=== PATIENT | female | born 1980 | race Caucasian/White ===

== ENCOUNTER 2020-04-02 11:56 | Observation (INO) ==
[2020-04-02] MEDS ORDERED: Ketorolac 15 MG/ML VIAL IVP ONE (12:10)
[2020-04-02] MEDS ORDERED: *HR* FentaNYL (PF) 100 MCG/2 ML VIAL IVP ONE (12:10)
[2020-04-02] MEDS ORDERED: Ondansetron 4 MG/2 ML VIAL IVP ONE (12:10)
[2020-04-02 12:40] LABS: Basophils # 0.1 K/mcL (0.0-0.2); Basophils % 0.4 %; Eosinophils # 0.1 K/mcL (0.0-0.6); Hematocrit 36.9 % (35.3-44.9); Hemoglobin 12.2 g/dL (11.5-15.4); Immature Granulocytes % 0.3 % (0-4); Lymphocytes # 1.6 K/mcL (0.6-4.6); Lymphocytes % 13.6 %; Mean Corpuscular HGB Conc 33.1 g/dL (31.6-35.5); Mean Corpuscular Hemoglobin 28.8 pg (28.0-33.3); Mean Platelet Volume 8.2 fL (9.4-12.4); Monocytes # 0.8 K/mcL (0.0-1.3); Monocytes % 6.7 %; Neutrophils # 9.4 K/mcL (1.6-8.9); Platelet Count 346 K/mcL (140-400); Red Blood Count 4.24 M/mcL (3.82-4.97); Red Cell Distribution Width 13.3 % (11.5-14.5)
[2020-04-02 13:03] LABS: Calcium 8.7 mg/dL (8.6-10.3)
[2020-04-02] MEDS ORDERED: 0.9 % Sodium Chloride 1,000 ML IVC ONE (13:08)
[2020-04-02 13:23] LABS: Bacteria,Urine Few per hpf (None-Few); Bilirubin,Urine Negative (Negative); Blood,Urine Trace (Negative); Clarity,Urine Clear (Clear); Color,Urine Light-Yellow (Yellow); Glucose,Urine (UA) Normal (Normal); Ketones,Urine Negative (Negative); Leukocyte Esterase,Urine Negative (Negative); Mucus,Urine Few per lpf (None-Few); Nitrite,Urine Negative (Negative); PH,Urine 5.5 pH Units (5.0-8.0); Protein,Urine Negative (Neg-Trace); RBC,Urine 0-3 per hpf (0-3); Specific Gravity,Urine 1.015 (1.010-1.025); Squamous Epithelial Cell,Urine Few per hpf (None-Few); Urobilinogen,Urine Normal (Normal); WBC,Urine 0-3 per hpf (0-3)
[2020-04-02] MEDS ORDERED: Naloxone 0.4 MG/ML INJ IVP PRN (13:33)
[2020-04-02] MEDS ORDERED: Ondansetron 4 MG/2 ML VIAL IVP PRN (13:33)
[2020-04-02] MEDS ORDERED: *HR* OxyCODONE Immed Rel 5 MG TABLET PO PRN (13:33)
[2020-04-02] MEDS ORDERED: D5% in Water 1,000 ML IVC PRN (13:36)
[2020-04-02] MEDS ORDERED: Dextrose Gel 15 GM/37.5 ML TUBE PO PRN ×2 (13:36)
[2020-04-02] MEDS ORDERED: *HR* Dextrose 50 % in Water (Vial) 50 ML VIAL IVP PRN (13:36)
[2020-04-02] MEDS ORDERED: Ringers Solution, Lactated 1,000 ML IVC SCH (13:45)
[2020-04-02 14:40] LABS: INR 1.2; Prothrombin Time 13.2 Seconds (9.4-12.1)
[2020-04-02 14:42] LABS: Activated Partial Thrombo Time 29.7 Seconds (26.0-36.0)
[2020-04-02] MEDS ORDERED: D5% in Water 1,000 ML IVC SCH (15:00)
[2020-04-02] MEDS: Insulin LISPRO 300 UNITS/3 ML VIAL SQ SCH (17:38)
[2020-04-02] MEDS: *HR* HYDROcodone/Acet 5/325 mg TABLET PO PRN (19:33)
[2020-04-03] MEDS: Insulin LISPRO 300 UNITS/3 ML VIAL SQ SCH ×4 (00:55→18:07)
[2020-04-03] MEDS: *HR* HYDROcodone/Acet 5/325 mg TABLET PO PRN ×2 (01:40→20:49)
[2020-04-03 02:05] LABS: Basophils # 0.1 K/mcL (0.0-0.2); Basophils % 0.5 %; Eosinophils # 0.2 K/mcL (0.0-0.6); Eosinophils % 1.7 %; Hematocrit 31.3 % (35.3-44.9); Immature Granulocytes % 0.2 % (0-4); Lymphocytes # 1.9 K/mcL (0.6-4.6); Mean Corpuscular HGB Conc 33.5 g/dL (31.6-35.5); Mean Corpuscular Hemoglobin 29.2 pg (28.0-33.3); Mean Corpuscular Volume 87.2 fL (83.0-100.0); Mean Platelet Volume 8.4 fL (9.4-12.4); Monocytes # 0.8 K/mcL (0.0-1.3); Monocytes % 8.7 %; Neutrophils # 6.5 K/mcL (1.6-8.9); Platelet Count 279 K/mcL (140-400); Red Blood Count 3.59 M/mcL (3.82-4.97); Red Cell Distribution Width 13.2 % (11.5-14.5); Segmented Neutrophils % 68.9 %; White Blood Count 9.4 K/mcL (4.3-11.1)
[2020-04-03 02:07] LABS: Hemoglobin 10.5 g/dL (11.5-15.4)
[2020-04-03 02:21] LABS: Potassium 3.8 mEq/L (3.5-5.1)
[2020-04-03] MEDS ORDERED: polyethylene glycoL 3350 17 GM POWD.PACK PO ONE (09:11)
[2020-04-03] MEDS ORDERED: *HR* HYDROmorphone PF 0.5 MG/0.5 ML SYRINGE IVP PRN ×2 (11:57→15:49)
[2020-04-03] MEDS ORDERED: Ketorolac 30 MG/ML VIAL IVP ONE ×2 (11:57→15:49)
[2020-04-03] MEDS ORDERED: *HR* OxyCODONE Immed Rel 5 MG TABLET PO PRN ×3 (11:57→15:49)
[2020-04-03] MEDS ORDERED: Ondansetron 4 MG/2 ML VIAL IVP ONE ×2 (11:57→15:49)
[2020-04-03] MEDS ORDERED: Ringers Solution, Lactated 1,000 ML IVC SCH ×2 (12:00→15:49)
[2020-04-03] MEDS ORDERED: Isovue-300 50ML VIAL ONE (12:40)
[2020-04-03] MEDS ORDERED: *HR* FentaNYL (PF) 100 MCG/2 ML VIAL ONE (12:44)
[2020-04-03] MEDS ORDERED: Lidocaine -MPF 2% 2 ML VIAL ONE (12:44)
[2020-04-03] MEDS ORDERED: *HR* Propofol 200 MG/20 ML VIAL IVP ONE (12:44)
[2020-04-03] MEDS ORDERED: *HR* Midazolam HCl 2 MG/2 ML VIAL ONE (12:44)
[2020-04-03] MEDS ORDERED: CeFAZolin Syr 2,000MG/20 ML 2,000 MG/20 ML SYRINGE IVPB ONE (13:17)
[2020-04-03] MEDS ORDERED: Dexamethasone 4 MG/ML VIAL ONE (14:02)
[2020-04-03] MEDS ORDERED: Ondansetron 4 MG/2 ML VIAL ONE (14:02)
[2020-04-03] MEDS ORDERED: Ketorolac 30 MG/ML VIAL ONE (14:24)
[2020-04-03] MEDS ORDERED: D5% in Water 1,000 ML IVC PRN (15:49)
[2020-04-03] MEDS ORDERED: Ondansetron 4 MG/2 ML VIAL IVP PRN (15:49)
[2020-04-03] MEDS ORDERED: Dextrose Gel 15 GM/37.5 ML TUBE PO PRN ×2 (15:49)
[2020-04-03] MEDS ORDERED: *HR* Dextrose 50 % in Water (Vial) 50 ML VIAL IVP PRN (15:49)
[2020-04-03] MEDS ORDERED: Naloxone 0.4 MG/ML INJ IVP PRN (15:49)
[2020-04-03] MEDS ORDERED: polyethylene glycoL 3350 17 GM POWD.PACK PO PRN (20:41)
[2020-04-04] MEDS: *HR* HYDROcodone/Acet 5/325 mg TABLET PO PRN ×2 (02:33→11:42)
[2020-04-04] MEDS: Insulin LISPRO 300 UNITS/3 ML VIAL SQ SCH ×2 (02:35→06:27)
[2020-04-04 03:12] LABS: Basophils % 0.2 %; Eosinophils % 0.2 %; Hematocrit 31.8 % (35.3-44.9); Hemoglobin 10.5 g/dL (11.5-15.4); Immature Granulocytes % 0.2 % (0-4); Lymphocytes # 0.9 K/mcL (0.6-4.6); Lymphocytes % 10.7 %; Mean Corpuscular Hemoglobin 28.6 pg (28.0-33.3); Mean Corpuscular Volume 86.6 fL (83.0-100.0); Mean Platelet Volume 8.5 fL (9.4-12.4); Monocytes # 0.3 K/mcL (0.0-1.3); Monocytes % 4.2 %; Neutrophils # 6.8 K/mcL (1.6-8.9); Platelet Count 332 K/mcL (140-400); Red Blood Count 3.67 M/mcL (3.82-4.97); Red Cell Distribution Width 13.2 % (11.5-14.5); Segmented Neutrophils % 84.5 %; White Blood Count 8.1 K/mcL (4.3-11.1)
[2020-04-04 03:26] LABS: Calcium 8.7 mg/dL (8.6-10.3); Potassium 4.6 mEq/L (3.5-5.1)
[2020-04-04] MEDS ORDERED: *HR* FentaNYL (PF) 100 MCG/2 ML VIAL IVP ONE (07:31)
[2020-04-04] MEDS ORDERED: *HR* Midazolam HCl 2 MG/2 ML VIAL IVP ONE (07:31)
[2020-04-04] MEDS ORDERED: 0.9 % Sodium Chloride 500 ML ONE (08:23)
[2020-04-04] MEDS ORDERED: 0.9 % Sodium Chloride 1,000 ML ONE (09:04)
[2020-04-04] MEDS ORDERED: Ampicillin/Sulbactam 1,500 MG in 0.9 % Sodium Chloride Mini Bag 100 ML IVPB ONE (09:18)
[2020-04-04] MEDS ORDERED: Isovue-300 50ML VIAL IVP ONE (09:26)
[2020-04-04 12:13] VITALS: BP 116/82
== END 2020-04-04 14:38 | disposition home or self-care (01) ==
LOC: 2ANU 11:56 → EMEROOARM 11:56 → SUATTDRO 14:02 → 2ANU 15:18
PROVIDERS: ADMIT Internal Medicine; ATTEND Family Medicine